=== PATIENT | female | born 1960 | race Caucasian/White ===

== ENCOUNTER 2020-10-07 19:58 | Observation (INO) | payer BC ==
[2020-10-07] MEDS ORDERED: ALBUTEROL HFA INHALER INHALATION STA (20:12)
[2020-10-07] MEDS ORDERED: SODIUM CHLORIDE 0.9% 1,000 ML IV STA ×2 (20:12)
--- NOTE | 2020-10-07 20:22 | ED ---
General Adult HPI - General Chief complaint: Recheck/Abnormal Lab/Rx Stated complaint: NIKI Time Seen by Provider: 10/07/20 19:58 Source: patient, EMS, RN notes reviewed Mode of arrival: EMS Limitations: no limitations - History of Present Illness Initial comments: This is a 60-year-old female with a history of breast cancer with bilateral mastectomy also history of hysterectomy a nonsmoker who started having symptoms that were flulike a days ago. She states her started feeling sick about the same time he was tested 4 days ago and found to be positive for Covid 19 and she tested positive for the next day. He presents with complaints of feeling short of breath fatigue loss of smell loss of taste some decrease oral intake. Difficulty getting a good breath she has some exertional dyspnea as well as dyspnea when she tries to take a deep breath. She does state in the past she was diagnosed with bronchitis and was put on an inhaler. She is a nonsmoker no diagnosed history of asthma COPD. She did have fevers chills and sweats earlier in the illness. She was brought in by EMS she was found have a pulse ox of 96 and 97 on oxygen on room air was in the low 90s. No other current complaints or modifying factors other than she has have a history of type 2 diabetes. - Related Data Allergies Allergy/AdvReac Type Severity Reaction Status Date / Time No Known Allergies Allergy Verified 10/07/20 23:06 Review of Systems ROS Statement: Those systems with pertinent positive or pertinent negative responses have been documented in the HPI. ROS Other: All systems not noted in ROS Statement are negative. Past Medical History Past Medical History: Cancer Additional Past Medical History / Comment(s): Breast CA 2009. History of Any Multi-Drug Resistant Organisms: None Reported Past Surgical History: Adenoidectomy, Hysterectomy, Orthopedic Surgery Additional Past Surgical History / Comment(s): Tramflap 2009. Double mastectomy. Past Psychological History: Anxiety Smoking Status: Never smoker Past Alcohol Use History: None Reported Past Drug Use History: None Reported General Exam - General Exam Comments Initial Comments: This is a well-developed well-nourished awake alert oriented 3 female Limitations: no limitations General appearance: alert, anxious Head exam: Present: atraumatic, normocephalic, normal inspection Eye exam: Present: normal appearance, PERRL, EOMI. Absent: scleral icterus, conjunctival injection, periorbital swelling ENT exam: Present: mucous membranes dry Neck exam: Present: normal inspection. Absent: tenderness, meningismus, ly mphadenopathy Respiratory exam: Present: decreased breath sounds (Decreased breath sounds especially on the right compared to the left). Absent: respiratory distress, wheezes, rales, rhonchi, stridor Cardiovascular Exam: Present: normal rhythm, tachycardia, normal heart sounds. Absent: systolic murmur, diastolic murmur, rubs, gallop, clicks GI/Abdominal exam: Present: soft, normal bowel sounds. Absent: distended, tende rness, guarding, rebound, rigid Extremities exam: Present: normal inspection, full ROM, normal capillary refill. Absent: tenderness, pedal edema, joint swelling, calf tenderness Back exam: Present: normal inspection Neurological exam: Present: alert, oriented X3, CN II-XII intact Psychiatric exam: Present: normal affect, normal mood Skin exam: Present: warm, dry, intact, normal color. Absent: rash Course Vital Signs 10/07/20 10/07/20 10/07/20 19:59 21:19 21:43 Temperature 99.4 F 98.9 F Pulse Rate 104 H 106 H Respiratory 18 18 18 Rate Blood Pressure 129/80 132/80 O2 Sat by Pulse 94 L 91 L Oximetry 10/07/20 10/07/20 22:29 23:08 Temperature 99.0 F Pulse Rate 104 H 104 H Respiratory 18 18 Rate Blood Pressure 139/83 137/77 O2 Sat by Pulse 91 L 92 L Oximetry EKG Findings - EKG Results: EKG: sinus rhythm (Sinus tachycardia rate of 103. Interval 148 QRS duration 116 daily since QTC 374/489 left exodeviation LVH with QRS widening) Medical Decision Making - Medical Decision Making I did reevaluate the patient multiple occasions patient initially presented with what appear to be adequate pulse ox however at rest she does desaturate into the 8687% range. After long discussion with patient will be admitted I did discuss the case with Dr. Purcell. - Lab Data Result diagrams: 10/07/20 20:57 10/07/20 20:57 Lab Results 10/07/20 10/07/20 10/07/20 Range/Units 20:57 20:57 20:57 WBC 6.0 (3.8-10.6) k/uL RBC 4.68 (3.80-5.40) m/uL Hgb 14.7 (11.4-16.0) gm/dL Hct 41.5 (34.0-46.0) % MCV 88.7 (80.0-100.0) fL MCH 31.3 (25.0-35.0) pg MCHC 35.3 (31.0-37.0) g/dL RDW 12.7 (11.5-15.5) % Plt Count 317 (150-450) k/uL MPV 7.0 Neutrophils % 76 % Lymphocytes % 18 % Monocytes % 4 % Eosinophils % 1 % Basophils % 1 % Neutrophils # 4.5 (1.3-7.7) k/uL Lymphocytes # 1.1 (1.0-4.8) k/uL Monocytes # 0.3 (0-1.0) k/uL Eosinophils # 0.0 (0-0.7) k/uL Basophils # 0.0 (0-0.2) k/uL PT 10.2 (9.0-12.0) sec INR 0.9 (<1.2) APTT 22.0 (22.0-30.0) sec D-Dimer 0.60 H (<0.60) mg/L FEU Sodium 132 L (137-145) mmol/L Potassium 4.3 (3.5-5.1) mmol/L Chloride 98 (98-107) mmol/L Carbon Dioxide 22 (22-30) mmol/L Anion Gap 12 mmol/L BUN 16 (7-17) mg/dL Creatinine 0.74 (0.52-1.04) mg/dL Est GFR (CKD-EPI)AfAm >90 (>60 ml/min/1.73 sqM) Est GFR (CKD-EPI)NonAf 88 (>60 ml/min/1.73 sqM) Glucose 165 H (74-99) mg/dL POC Glucose (mg/dL) (75-99) mg/dL POC Glu Director [place] Plasma Lactic Acid Kennedy (0.7-2.0) mmol/L Calcium 9.2 (8.4-10.2) mg/dL Magnesium 2.0 (1.6-2.3) mg/dL Total Bilirubin 0.7 (0.2-1.3) mg/dL AST 35 (14-36) U/L ALT 20 (4-34) U/L Alkaline Phosphatase 116 (38-126) U/L Lactate Dehydrogenase 613 (313-618) U/L Creatine Kinase 94 (30-135) U/L Troponin I (0.000-0.034) ng/mL C-Reactive Protein 29.3 H (<10.0) mg/L NT-Pro-B Natriuret Pep pg/mL Total Protein 8.0 (6.3-8.2) g/dL Albumin 4.2 (3.5-5.0) g/dL 10/07/20 10/07/20 10/07/20 Range/Units 20:57 20:57 20:57 WBC (3.8-10.6) k/uL RBC (3.80-5.40) m/uL Hgb (11.4-16.0) gm/dL Hct (34.0-46.0) % MCV (80.0-100.0) fL MCH (25.0-35.0) pg MCHC (31.0-37.0) g/dL RDW (11.5-15.5) % Plt Count (150-450) k/uL MPV Neutrophils % % Lymphocytes % % Monocytes % % Eosinophils % % Basophils % % Neutrophils # (1.3-7.7) k/uL Lymphocytes # (1.0-4.8) k/uL Monocytes # (0-1.0) k/uL Eosinophils # (0-0.7) k/uL Basophils # (0-0.2) k/uL PT (9.0-12.0) sec INR (<1.2) APTT (22.0-30.0) sec D-Dimer (<0.60) mg/L FEU Sodium (137-145) mmol/L Potassium (3.5-5.1) mmol/L Chloride (98-107) mmol/L Carbon Dioxide (22-30) mmol/L Anion Gap mmol/L BUN (7-17) mg/dL Creatinine (0.52-1.04) mg/dL Est GFR (CKD-EPI)AfAm (>60 ml/min/1.73 sqM) Est GFR (CKD-EPI)NonAf (>60 ml/min/1.73 sqM) Glucose (74-99) mg/dL POC Glucose (mg/dL) (75-99) mg/dL POC Glu Director [place] ID Plasma Lactic Acid Kennedy 1.3 (0.7-2.0) mmol/L Calcium (8.4-10.2) mg/dL Magnesium (1.6-2.3) mg/dL Total Bilirubin (0.2-1.3) mg/dL AST (14-36) U/L ALT (4-34) U/L Alkaline Phosphatase (38-126) U/L Lactate Dehydrogenase (313-618) U/L Creatine Kinase (30-135) U/L Troponin I <0.012 (0.000-0.034) ng/mL C-Reactive Protein (<10.0) mg/L NT-Pro-B Natriuret Pep 28 pg/mL Total Protein (6.3-8.2) g/dL Albumin (3.5-5.0) g/dL 10/07/20 Range/Units 23:05 WBC (3.8-10.6) k/uL RBC (3.80-5.40) m/uL Hgb (11.4-16.0) gm/dL Hct (34.0-46.0) % MCV (80.0-100.0) fL MCH (25.0-35.0) pg MCHC (31.0-37.0) g/dL RDW (11.5-15.5) % Plt Count (150-450) k/uL MPV Neutrophils % % Lymphocytes % % Monocytes % % Eosinophils % % Basophils % % Neutrophils # (1.3-7.7) k/uL Lymphocytes # (1.0-4.8) k/uL Monocytes # (0-1.0) k/uL Eosinophils # (0-0.7) k/uL Basophils # (0-0.2) k/uL PT (9.0-12.0) sec INR (<1.2) APTT (22.0-30.0) sec D-Dimer (<0.60) mg/L FEU Sodium (137-145) mmol/L Potassium (3.5-5.1) mmol/L Chloride (98-107) mmol/L Carbon Dioxide (22-30) mmol/L Anion Gap mmol/L BUN (7-17) mg/dL Creatinine (0.52-1.04) mg/dL Est GFR (CKD-EPI)AfAm (>60 ml/min/1.73 sqM) Est GFR (CKD-EPI)NonAf (>60 ml/min/1.73 sqM) Glucose (74-99) mg/dL POC Glucose (mg/dL) 150 H (75-99) mg/dL POC Glu Director [place] ID [place] Plasma Lactic Acid Kennedy (0.7-2.0) mmol/L Calcium (8.4-10.2) mg/dL Magnesium (1.6-2.3) mg/dL Total Bilirubin (0.2-1.3) mg/dL AST (14-36) U/L ALT (4-34) U/L Alkaline Phosphatase (38-126) U/L Lactate Dehydrogenase (313-618) U/L Creatine Kinase (30-135) U/L Troponin I (0.000-0.034) ng/mL C-Reactive Protein (<10.0) mg/L NT-Pro-B Natriuret Pep pg/mL Total Protein (6.3-8.2) g/dL Albumin (3.5-5.0) g/dL - Radiology Data Radiology results: report reviewed (Imaging reviewed as well as report bilateral interstitial infiltrates CAT scan however negative for evidence of pulmonary emboli.), image reviewed Disposition Clinical Impression: Pneumonia due to COVID-19 virus, Hypoxemia, Viral syndrome Disposition: ADMITTED IP TO THIS [facility] Condition: Fair Referrals: Nonstaff,Physician [Primary Care Provider] - 1-2 days
[2020-10-07 21:03] LABS: Basophils % (A) 1 %; Eosinophils % (A) 1 %; HCT 41.5 % (34.0-46.0); HGB 14.7 gm/dL (11.4-16.0); Lymphocytes # (A) 1.1 k/uL (1.0-4.8); Lymphocytes % (A) 18 %; MCH 31.3 pg (25.0-35.0); MCHC 35.3 g/dL (31.0-37.0); MCV 88.7 fL (80.0-100.0); Monocytes # (A) 0.3 k/uL (0-1.0); Monocytes % (A) 4 %; Neutrophils # (A) 4.5 k/uL (1.3-7.7); Neutrophils % (A) 76 %; Platelet Count 317 k/uL (150-450); RBC 4.68 m/uL (3.80-5.40); RDW 12.7 % (11.5-15.5)
--- NOTE | 2020-10-07 21:13 | XR ---
EXAMINATION TYPE: XR chest 1V portable DATE OF EXAM: 10/07/2020 COMPARISON: NONE HISTORY: Short of breath TECHNIQUE: Single view FINDINGS: Heart is normal. There is coarse interstitial density in the lungs with subsegmental atelec tasis. There is no heart failure. There are chest leads. IMPRESSION: Interstitial infiltrate and subsegmental atelectasis in both lungs. No heart failure.
[2020-10-07 21:15] LABS: ALT 20 U/L (4-34); AST 35 U/L (14-36); African American GFR (CKD) >90 (>60 ml/min/1.73 sqM); Albumin 4.2 g/dL (3.5-5.0); Alkaline Phosphatase 116 U/L (38-126); Anion Gap 12 mmol/L; Blood Urea Nitrogen 16 mg/dL (7-17); C Reactive Protein 29.3 mg/L (<10.0); Calcium 9.2 mg/dL (8.4-10.2); Carbon Dioxide 22 mmol/L (22-30); Chloride 98 mmol/L (98-107); Creatine Kinase 94 U/L (30-135); Glucose 165 mg/dL (74-99); LDH 613 U/L (313-618); Non-African American GFR(CKD) 88 (>60 ml/min/1.73 sqM); Potassium 4.3 mmol/L (3.5-5.1); Sodium 132 mmol/L (137-145); Total Bilirubin 0.7 mg/dL (0.2-1.3)
[2020-10-07 21:30] LABS: INR 0.9 (<1.2); Prothrombin Time 10.2 sec (9.0-12.0)
[2020-10-07 21:41] LABS: D-Dimer 0.6 mg/L FEU (<0.60)
--- NOTE | 2020-10-07 22:40 | CT ---
EXAMINATION TYPE: CT angio chest DATE OF EXAM: 10/07/2020 COMPARISON: None HISTORY: Shortness of breath, +covid. CT DLP: 554.5 mGycm Automated exposure control for dose reduction was used. CONTRAST: Performed with IV Contrast, patient injected with 100ml mL of Isovue 370. There are 3-D post processed images. There is patchy groundglass interstitial infiltrate in both lungs. There is patchy subsegmental atele ctasis in the lower lung ordoñez. Heart size is normal. There is no pericardial effusion. There is normal contrast opacification of the pulmonary arteries. There are no filling defects. There is no mediastinal adenopathy. There are no hilar masses. Thoracic aorta is intact. There is no aneurysm or dissection. The ascending aorta measures 3.5 cm. Thoracic spine is intact. There is no compression fracture. IMPRESSION: No evidence of pulmonary embolism. Patchy interstitial pulmonary infiltrates and subsegmental atelect asis.
[2020-10-07 23:09] LABS: Glucose,Whole Blood 150 mg/dL (75-99)
[2020-10-07] MEDS ORDERED: PNEUMONIA PROTOCOL UTILIZED 1 EACH MISC PO PRN (23:20)
[2020-10-07] MEDS ORDERED: dexAMETHasone 2 MG TAB PO STA (23:23)
[2020-10-08] MEDS ORDERED: ALBUTEROL HFA INHALER INHALATION SCH
[2020-10-08] MEDS: SODIUM CHLORIDE 0.9% 1,000 ML IV SCH ×2 (00:12→08:50)
[2020-10-08] MEDS ORDERED: ALPRAZolam 0.5 MG TAB PO PRN (00:21)
[2020-10-08] MEDS ORDERED: HYDROcodone/APAP 5-325MG 1 EACH TAB PO PRN (00:21)
[2020-10-08] MEDS ORDERED: SENNOSIDES-DOCUSATE SODIUM 1 EACH TAB PO PRN (00:21)
--- NOTE | 2020-10-08 00:35 | P.HPIM ---
History of Present Illness H&P Date: 10/07/20 Chief Complaint: SOB 60 year old female with history of breast cancer s/p mastectomy, DM on insulin patient comes in due to worsening dyspnea, and shortness of breath, she also reports productive cough, fever, chills, loss of smell and taste sensation , generalized body aches. she has those symptoms for over a week now, started with her as he had contact with COIVD positive patient at work. he tested positive later, and she tested and was positive for covid. her symptoms got worse over the past couple days, however her is improving. she denies any recent travel, denies any chest pain , denies hymoptysis, she denies urinary changes. she does have diarrhea but no nausea vomiting EMS noted that she was hypoxic on room air , dropping to 90%. in the ED she improved with oxygen , blood work over all unremarkable except for slightly elevated d dimer, and CRP CXR showed interstitial infilterates, CTA showed no acute PE EKG showed sinus tachy she seems to be anxious about this COVID infection, and worried that she might ,. Review of Systems Pertinent positives as noted in HPI. All other systems were reviewed and are negative Past Medical History Past Medical History: Cancer Additional Past Medical History / Comment(s): Breast CA 2008. History of Any Multi-Drug Resistant Organisms: None Reported Past Surgical History: Adenoidectomy, Hysterectomy, Orthopedic Surgery Additional Past Surgical History / Comment(s): Tramflap 2008. Double mastectomy. Past Psychological History: Anxiety Smoking Status: Never smoker Past Alcohol Use History: None Reported Past Drug Use History: None Reported - Past Family History family Family Medical History: No Reported History Medications and Allergies Home Medications Medication Instructions Recorded Confirmed Type ALPRAZolam [Xanax] 0.25 mg PO TID PRN 10/07/20 10/07/20 History DULoxetine HCL [Cymbalta] 30 mg PO DAILY 10/07/20 10/07/20 History Diclofenac Sodium [Voltaren 1 applic TOPICAL HS PRN 10/07/20 10/07/20 History Arthritis Pain 1% Gel] Furosemide [Lasix] 20 mg PO DAILY 10/07/20 10/07/20 History Gabapentin [Neurontin] 900 mg PO BID 10/07/20 10/07/20 History Glycopyrrolate [Robinul Forte] 2 mg PO BID PRN 10/07/20 10/07/20 History HYDROcodone/APAP 5-325MG [Halma 1 - 2 tab PO Q8H PRN 10/07/20 10/07/20 History 5-325] INSULIN ASPART (NovoLOG) [NovoLOG See Protocol SQ TID-W/MEALS 10/07/20 10/07/20 History (formulary)] Insulin Glargine,Hum.rec.anlog 20 unit SQ QAM 10/07/20 10/07/20 History [Lantus Solostar] Insulin Glargine,Hum.rec.anlog 27 unit SQ HS 10/07/20 10/07/20 History [Lantus Solostar] Losartan Potassium [Cozaar] 50 mg PO DAILY 10/07/20 10/07/20 History Metoprolol Succinate [Toprol XL] 50 mg PO DAILY 10/07/20 10/07/20 History Mv,Calcium,Min/Iron/Folic/Vitk 1 tab PO DAILY 10/07/20 10/07/20 History [One-A-Day Women's Complete Tab] Sennosides-Docusate Sodium 2 tab PO HS PRN 10/07/20 10/07/20 History [Senokot-S] diphenhydrAMINE [Benadryl] 50 mg PO HS PRN 10/07/20 10/07/20 History metFORMIN HCL [Glucophage] 500 mg PO BID 10/07/20 10/07/20 History Allergies Allergy/AdvReac Type Severity Reaction Status Date / Time No Known Allergies Allergy Verified 10/07/20 23:41 Physical Exam Vitals: Vital Signs Temp Pulse Resp BP Pulse Ox 10/07/20 23:08 99.0 F 104 H 18 137/77 92 L 10/07/20 22:29 104 H 18 139/83 91 L 10/07/20 21:43 98.9 F 106 H 18 132/80 91 L 10/07/20 21:19 18 10/07/20 19:59 99.4 F 104 H 18 129/80 94 L Intake and Output 10/07/20 10/07/20 10/08/20 14:59 22:59 06:59 Other: Weight 101.151 kg Constitutional: No acute distress, conversant, pleasant Eyes: Anicteric sclerae, moist conjunctiva, Pupils equal round reactive to light ENMT: NC/AT Oropharynx clear, no erythema, or exudates Neck: Supple, FROM, no masses, or JVD No carotid bruits No thyromegaly Lungs: Clear to auscultation Clear to percussion Normal respiratory effort, no accessory muscle use Cardiovascular: Heart regular in rate and rhythm, No murmurs, gallops, or rubs No peripheral edema Abdominal: Soft Nontender, no guarding, rebound or rigidity Abdomen moving with respiration Normoactive bowel sounds No hepatomegaly, No splenomegaly No palpable mass No abdominal wall hernia noted Skin: generalized vetiligo , otherwise Normal temperature, tone, texture, turgor No induration No subcutaneous nodules No rash, lesions No ulcers Extremities: No digital cyanosis No clubbing Pedal pulses intact and symmetrical Radial pulses intact and symmetrical No calf tenderness Psychiatric: Alert and oriented to person, place and time Appropriate affect fair judgement Neuro Muscles Strength 5/5 in all 4 extremities Sensation to light touch grossly present throughout Cranial nerves II-XII grossly intact No focal sensory deficits Lymphatics: no palpable cervical or supraclavicular , or inguinal lymph nodes Results CBC & Chem 7: 10/07/20 20:57 10/07/20 20:57 Labs: Abnormal Lab Results - Last 24 Hours (Table) 10/07/20 10/07/20 10/07/20 Range/Units 20:57 20:57 23:05 D-Dimer 0.60 H (<0.60) mg/L FEU Sodium 132 L (137-145) mmol/L Glucose 165 H (74-99) mg/dL POC Glucose (mg/dL) 150 H (75-99) mg/dL C-Reactive Protein 29.3 H (<10.0) mg/L Assessment and Plan Assessment: acute hypoxic respiratory failure acute COVID pneumonitis plan supplemetnal oxygen as needed dexamethasone remdesivir was not started due to symptoms >7 days DVT PPX with daily lovenox 40 mg supportive care tylenol for fever and pain advil as a second line for body aches xanax ffor anxiety chronic conditions DM , insulin long acting and sliding scale , hold metformin resume home meds CODE STATUS:full code DVT prophylaxis: LOVENOX sc Discussed with: Patient, ER, RN Anticipated length of stay > than [address]: home A total of 75 minutes was spent on the care of this complex patient more than 50% of the time was spent in counseling and care coordination.
[2020-10-08] MEDS ORDERED: ACETAMINOPHEN TAB 325 MG TAB PO PRN (01:32)
[2020-10-08] MEDS ORDERED: IBUPROFEN 400 MG TAB PO PRN (01:32)
[2020-10-08 03:19] LABS: Ferritin 334.7 ng/mL (10.0-291.0)
[2020-10-08] MEDS ORDERED: INSULIN DETEMIR (LEVEMIR) 100 UNIT/ML SYR SQ SCH ×2 (07:00→21:00)
[2020-10-08 07:29] LABS: Glucose,Whole Blood 208 mg/dL (75-99)
[2020-10-08] MEDS ORDERED: INSULIN ASPART (NovoLOG) 100 UNIT/ML VIAL SQ SCH ×2 (07:30→12:30)
[2020-10-08] MEDS: ALBUTEROL HFA INHALER INHALATION SCH ×2 (08:01→12:36)
[2020-10-08] MEDS ORDERED: dexAMETHasone 4 MG TAB PO SCH (09:00)
[2020-10-08] MEDS ORDERED: METOPROLOL SUCCINATE (ER) 50 MG TAB.ER.24H PO SCH (09:00)
[2020-10-08] MEDS ORDERED: CHOLECALCIFEROL 25 MCG (1000 IU) TABLET PO SCH (09:00)
[2020-10-08] MEDS ORDERED: ENOXAPARIN 40 MG/0.4 ML SYRINGE SQ SCH (09:00)
[2020-10-08] MEDS ORDERED: GABAPENTIN 300 MG CAP PO SCH (09:00)
[2020-10-08] MEDS ORDERED: ASCORBIC ACID 500 MG TAB PO SCH (09:00)
[2020-10-08] MEDS ORDERED: ZINC SULFATE 220 MG CAP PO SCH (09:00)
[2020-10-08] MEDS ORDERED: LOSARTAN 50 MG TAB PO SCH (09:00)
[2020-10-08] MEDS ORDERED: DULoxetine HCL 30 MG CAPSULE.DR PO SCH (09:00)
[2020-10-08 10:04] VITALS: BP 121/75; PULSE 104; RESP 16; TEMP 98
[2020-10-08 11:55] LABS: Glucose,Whole Blood 197 mg/dL (75-99)
--- NOTE | 2020-10-08 13:04 | P.DS ---
Providers Date of admission: 10/07/20 23:24 Expected date of discharge: 10/08/20 Attending physician: Kalia Hernandez MD Primary care physician: Physician Nonstaff Hospital Course: This is a 60-year-old female with complex past medical history significant for essential hypertension, type 2 diabetes, and underlying depression that presented to the emergency room with shortness of breath and cough. Patient was evaluated in the ER and was found to have COVID-19 pneumonitis. Patient had a reading of her O2 sats around 88% on room air and was started on oral Decadron, vitamin C, vitamin D, and zinc. She was admitted to the hospital. CT angiogram showed no evidence of PE. Patient received IV fluid hydration. Her overall condition improved significantly. On the day of my evaluation, patient was eager to go home. O2 sat with ambulation around 92%. Patient was advised to take it easy at home and continue aggressive oral hydration. She will be sent home with a prescription for Decadron, zinc, vitamin D, and vitamin C. She'll be discharged home in a stable condition. Patient Condition at Discharge: Fair Plan - Discharge Summary New Discharge Prescriptions: New Zinc Sulfate [Orazinc] 220 mg PO DAILY #14 cap Albuterol Inhaler [Ventolin Hfa Inhaler] 2 puff INHALATION RT-QID PRN #1 inhaler PRN Reason: Shortness Of Breath Ascorbic Acid [Vitamin C] 1,000 mg PO DAILY #14 tab Cholecalciferol [Vitamin D3 (25 Mcg = 1000 Iu)] 100 mcg PO DAILY #14 tablet Dexamethasone [Decadron] 6 mg PO DAILY #8 tablet Continue Mv,Calcium,Min/Iron/Folic/Vitk [One-A-Day Women's Complete Tab] 1 tab PO DAILY Insulin Glargine,Hum.rec.anlog [Lantus Solostar] 27 unit SQ HS metFORMIN HCL [Glucophage] 500 mg PO BID Metoprolol Succinate [Toprol XL] 50 mg PO DAILY Losartan Potassium [Cozaar] 50 mg PO DAILY Insulin Glargine,Hum.rec.anlog [Lantus Solostar] 20 unit SQ QAM HYDROcodone/APAP 5-325MG [Warren 5-325] 1 - 2 tab PO Q8H PRN PRN Reason: NEUROPATHY PAIN IN FEET Gabapentin [Neurontin] 900 mg PO BID DULoxetine HCL [Cymbalta] 30 mg PO DAILY Sennosides-Docusate Sodium [Senokot-S] 2 tab PO HS PRN PRN Reason: Constipation Diclofenac Sodium [Voltaren Arthritis Pain 1% Gel] 1 applic TOPICAL HS PRN PRN Reason: NEUROPATHY ON FEET diphenhydrAMINE [Benadryl] 50 mg PO HS PRN PRN Reason: Insomnia ALPRAZolam [Xanax] 0.25 mg PO TID PRN PRN Reason: Anxiety INSULIN ASPART (NovoLOG) [NovoLOG (formulary)] See Protocol SQ TID-W/MEALS Glycopyrrolate [Robinul Forte] 2 mg PO BID PRN PRN Reason: ULCER Discontinued Furosemide [Lasix] 20 mg PO DAILY Discharge Medication List ALPRAZolam [Xanax] 0.25 mg PO TID PRN 10/07/20 [History] DULoxetine HCL [Cymbalta] 30 mg PO DAILY 10/07/20 [History] Diclofenac Sodium [Voltaren Arthritis Pain 1% Gel] 1 applic TOPICAL HS PRN 10/07/20 [History] Gabapentin [Neurontin] 900 mg PO BID 10/07/20 [History] Glycopyrrolate [Robinul Forte] 2 mg PO BID PRN 10/07/20 [History] HYDROcodone/APAP 5-325MG [Warren 5-325] 1 - 2 tab PO Q8H PRN 10/07/20 [History] INSULIN ASPART (NovoLOG) [NovoLOG (formulary)] See Protocol SQ TID-W/MEALS 10/07/20 [History] Insulin Glargine,Hum.rec.anlog [Lantus Solostar] 20 unit SQ QAM 10/07/20 [History] Insulin Glargine,Hum.rec.anlog [Lantus Solostar] 27 unit SQ HS 10/07/20 [History] Losartan Potassium [Cozaar] 50 mg PO DAILY 10/07/20 [History] Metoprolol Succinate [Toprol XL] 50 mg PO DAILY 10/07/20 [History] Mv,Calcium,Min/Iron/Folic/Vitk [One-A-Day Women's Complete Tab] 1 tab PO DAILY 10/07/20 [History] Sennosides-Docusate Sodium [Senokot-S] 2 tab PO HS PRN 10/07/20 [History] diphenhydrAMINE [Benadryl] 50 mg PO HS PRN 10/07/20 [History] metFORMIN HCL [Glucophage] 500 mg PO BID 10/07/20 [History] Albuterol Inhaler [Ventolin Hfa Inhaler] 2 puff INHALATION RT-QID PRN #1 inhaler 10/08/20 [Rx] Ascorbic Acid [Vitamin C] 1,000 mg PO DAILY #14 tab 10/08/20 [Rx] Cholecalciferol [Vitamin D3 (25 Mcg = 1000 Iu)] 100 mcg PO DAILY #14 tablet 10/08/20 [Rx] Dexamethasone [Decadron] 6 mg PO DAILY #8 tablet 10/08/20 [Rx] Zinc Sulfate [Orazinc] 220 mg PO DAILY #14 cap 10/08/20 [Rx] Follow up Appointment(s)/Referral(s): Nonstaff,Physician [Primary Care Provider] - 1-2 days Discharge Disposition: HOME SELF-CARE
== END 2020-10-08 14:20 | disposition home or self-care (01) ==
LOC: EC 19:58 → INTOOBSV 23:24 → 4SSUR 23:24 → UNDODISIN 10-08 14:20
PROVIDERS: ADMIT Internal Medicine; ATTEND Internal Medicine
DX: U07.1 COVID-19 (principal); J12.82 Pneumonia due to coronavirus disease 2019; J96.01 Acute respiratory failure with hypoxia; E11.40 Type 2 diabetes mellitus with diabetic neuropathy, unspecified; I10 Essential (primary) hypertension; F32.9 Major depressive disorder, single episode, unspecified; F41.9 Anxiety disorder, unspecified; R79.89 Other specified abnormal findings of blood chemistry; Z79.891 Long term (current) use of opiate analgesic; Z79.4 Long term (current) use of insulin; Z79.899 Other long term (current) drug therapy; Z90.13 Acquired absence of bilateral breasts and nipples; Z90.710 Acquired absence of both cervix and uterus; Z85.3 Personal history of malignant neoplasm of breast; Z90.89 Acquired absence of other organs
CPT/HCPCS: 96372; 96360; 96361; 99285; 36415; 94640 ×3; 94760; 93005; 85379; 83880; 80053; 82728; 82550; 83605; 83615; 83735; 84484; 85025; 85610; 85730; 86140; 87040; 84145; 87635; 71045; 71275; G0378 ×2; J8540 ×2; J1650; Q9967; 96376